=== PATIENT | female | born 1990 ===

== ENCOUNTER 2021-10-29 23:53 | Emergency (ER) | payer OTHER ==
[~2021-10-29] VITALS: Ht 160 cm; Wt 90.7 kg
[2021-10-30] MEDS ORDERED: MEDROXYPROGESTE10 MG PO (02:35)
== END 2021-10-30 04:14 | disposition home or self-care (01) ==
LOC: ER 23:53
DX: N93.8 Other specified abnormal uterine and vaginal bleeding (principal); N83.201 Unspecified ovarian cyst, right side